=== PATIENT | male | born 1960 | race Caucasian/White ===

== ENCOUNTER 2018-12-06 13:57 | Inpatient (IN) | payer OTHER, SELFPAY ==
[2018-12-06] MEDS ORDERED: ASPIRIN 81 MG CHEWABLE TABLET ONE (15:08)
--- NOTE | 2018-12-06 15:33 | RAD REPORT ---
EXAM DESCRIPTION: RAD - Chest Single View - 12/06/2018 3:03 pm CLINICAL HISTORY: CHEST PAIN Chest pain. COMPARISON: Chest Pa And Lat (2 Views) dated 08/11/2016 FINDINGS: Portable technique limits examination quality. The lungs are grossly clear. The heart is normal in size. No displaced fractures. IMPRESSION: No acute intrathoracic process suspected.
[2018-12-06 15:34] LABS: Absolute Lymphocytes (CBC) 1.3 K/uL (0.7-4.9); Absolute Monocytes 0.9 K/uL (0.1-1.3); Absolute Neutrophil 9.4 K/uL (1.8-8.0); Basophils % 0.9 % (0-1.3); Eosinophils % 2.1 % (0-4.4); Hematocrit 45.5 % (39.6-49.0); Lymphocytes % 11.2 % (15.3-44.8); Monocytes % 7.6 % (3.3-12.3); RBC Red Blood Cell Count 4.81 M/uL (4.33-5.43)
[2018-12-06 15:35] LABS: Protime INR 0.96
[2018-12-06 15:54] LABS: Albumin 4.3 g/dL (3.4-5.0); Bilirubin Direct 0.1 mg/dL (0-0.2); Bilirubin Total 0.4 mg/dL (0.2-1.0); Magnesium 2.1 mg/dL (1.8-2.4); Potassium 4.1 mmol/L (3.5-5.1); Protein, Total 7.8 g/dL (6.4-8.2); Troponin (Emerg Dept Use Only) 0.13 ng/mL (0.0-0.045)
--- NOTE | 2018-12-06 16:14 | ER ---
Nurse's Notes [facility] Name: Gustavo Kong Age: 57 yrs Sex: Male : 1960 Arrival Date: 12/06/2018 Time: 13:58 Bed 7 Private MD: Nir Valverde V Diagnosis: Non-ST elevation (NSTEMI) myocardial infarction Presentation: 12/06 14:06 Presenting complaint: Patient states: Substernal chest pain that radiates to back, ph describes as intermittent pressure, started this morning, denies SOB, N/V. Transition of care: patient was not received from another setting of care. Onset of symptoms was December 06, 2018. Risk Assessment: Do you want to hurt yourself or someone else? Patient reports no desire to harm self or others. Initial Sepsis Screen: Does the patient meet any 2 criteria? No. Patient's initial sepsis screen is negative. Does the patient have a suspected source of infection? No. Patient's initial sepsis screen is negative. Care prior to arrival: None. 14:06 Method Of Arrival: Ambulatory ph 14:06 Acuity: PEDRO LUIS 3 ph Historical: - Allergies: 17:19 No Known Allergies; rv - Home Meds: 17:19 atorvastatin 10 mg oral tab 1 tab once daily [Active]; losartan 50 mg oral tab 1 tab rv once daily [Active]; - PMHx: 14:09 Hypertension; Hyperlipidemia; ph - PSHx: 17:19 None; rv - Immunization history:: Adult Immunizations unknown. - Social history:: Smoking status: unknown. - Ebola Screening: : Patient negative for fever greater than or equal to 101.5 degrees Fahrenheit, and additional compatible Ebola Virus Disease symptoms Patient denies exposure to infectious person Patient denies travel to an Ebola-affected area in the 21 days before illness onset. Screenin:01 Abuse screen: Denies threats or abuse. Denies injuries from another. Nutritional rv screening: No deficits noted. Tuberculosis screening: No symptoms or risk factors identified. Fall Risk None identified. Assessment: 15:00 General: Appears in no apparent distress. comfortable, Behavior is calm, cooperative. rv 15:00 Pain: Complains of pain in chest Pain does not radiate. Pain began suddenly. Neuro: rv Level of Consciousness is awake, alert, obeys commands, Oriented to person, place, time, situation. Cardiovascular: Capillary refill < 3 seconds Rhythm is regular. Respiratory: Airway is patent. GI: No signs and/or symptoms were reported involving the gastrointestinal system. : No signs and/or symptoms were reported regarding the genitourinary system. EENT: No signs and/or symptoms were reported regarding the EENT system. Derm: Skin is intact. Musculoskeletal: No signs and/or symptoms reported regarding the musculoskeletal system. 17:13 Reassessment: Patient appears in no apparent distress at this time. No changes from rv previously documented assessment. Patient and/or family updated on plan of care and expected duration. Pain level reassessed. Patient is alert, oriented x 3, equal unlabored respirations, skin warm/dry/pink. 17:52 Reassessment: chest pain free. rv 20:00 Reassessment: Patient appears in no apparent distress at this time. No changes from rv previously documented assessment. Patient and/or family updated on plan of care and expected duration. Pain level reassessed. Patient is alert, oriented x 3, equal unlabored respirations, skin warm/dry/pink. 12/07 07:00 Reassessment: RECD REPORT FROM COLE JOHNSON. 57YO WM P/W CP. 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 CONSENT AND PREP COMPLETED. 08:02 Reassessment: PT BE WITH HYDRO MECHANIC. bp Vital Signs: 12/06 14:08 BP 162 / 84; Pulse 106; Resp 18; Temp 98.2; Pulse Ox 96% on R/A; Weight 86.18 kg; ph Height 5 ft. 7 in. (170.18 cm); Pain 6/10; 16:00 BP 136 / 87 LA; Pulse 97; Resp 12 S; Pulse Ox 98% on R/A; rv 16:30 BP 155 / 89 LA; Pulse 97; Resp 14 S; Pulse Ox 99% on R/A; rv 17:00 BP 130 / 68 LA; Pulse 90; Resp 18 S; Pulse Ox 100% on R/A; rv 17:30 BP 159 / 88 LA; Pulse 93; Resp 18 S; Pulse Ox 99% on R/A; rv 18:00 BP 137 / 70 LA; Pulse 80; Resp 19 S; Pulse Ox 100% on R/A; rv 18:30 BP 135 / 79 LA; Pulse 91; Resp 19 S; Pulse Ox 100% on R/A; rv 19:00 BP 109 / 52 LA; Pulse 72; Resp 17 S; Pulse Ox 98% on R/A; rv 19:30 BP 124 / 104 LA; Pulse 72; Resp 16 S; Pulse Ox 99% on R/A; rv 20:00 BP 119 / 62 LA; Pulse 68; Resp 12 S; Pulse Ox 99% on R/A; rv 20:30 BP 122 / 88 LA; Pulse 71; Resp 13 S; Pulse Ox 99% on R/A; rv 21:00 BP 136 / 78 LA; Pulse 69; Resp 12 S; Pulse Ox 100% on R/A; rv 12/07 08:00 BP 132 / 76; Pulse 75; Resp 16; Pulse Ox 97% ; bp 12/06 14:08 Body Mass Index 29.76 (86.18 kg, 170.18 cm) ph ED Course: 12/06 13:58 Patient arrived in ED. ag5 13:58 Nir Valverde MD is Private Physician. ag5 14:08 Triage completed. ph 14:10 Arm band placed on. ph 14:21 EKG done, by dietetic tech. reviewed by Bradly Dasilva MD. sm3 14:39 Todd Pierre PA is PHCP. jr8 14:39 Bradly Dasilva MD is Attending Physician. jr8 15:03 XRAY Chest (1 view) In Process Unspecified. EDMS 15:04 X-ray completed. Portable x-ray completed in exam room. Patient tolerated procedure jb2 well. 15:05 Initial lab(s) drawn, by sd, sent to lab. Inserted saline lock: 20 gauge in right lt1 antecubital area, using aseptic technique. 16:13 Nir Valverde MD is Hospitalizing Provider. jr8 17:02 Patient maintains SpO2 saturation greater than 95% on room air. rv 17:03 Patient has correct armband on for positive identification. Bed in low position. Call rv light in reach. Side rails up X 1. Adult w/ patient. nurse monitoring on. Pulse ox on. NIBP on. 23:44 No provider procedures requiring assistance completed. Patient admitted, IV remains in rv place. intact. 12/07 06:59 Kit Tyler, ELIZABETH is Primary Nurse. bp 07:42 EKG done, by dietetic tech. reviewed by Bradly Dasilva MD. at1 Administered Medications: 12/06 15:00 Drug: Aspirin 162 mg Route: PO; rv 18:43 Follow up: Response: No adverse reaction rv 16:30 Drug: Lovenox 1 mg/kg Route: Sub-Q; Site: right lower abdomen; rv 18:43 Follow up: Response: No adverse reaction rv 16:30 Drug: Effient 60 mg Route: PO; rv 18:43 Follow up: Response: No adverse reaction rv 16:30 Drug: Metoprolol 25 mg Route: PO; rv 18:42 Follow up: Response: No adverse reaction rv Outcome: 16:14 Decision to Hospitalize by Provider. jr8 23:45 Admitted to ER Hold. Please see [facility] for further documentation. rv 23:45 Condition: stable 23:45 Instructed on the need for admit. 12/07 08:03 Patient left the ED. bp Signatures: Dispatcher [employer] EDMS Romero Swain jb2 Todd Pierre PA PA jr8 Rebecca Sanford, brake tester EKG Tat1 Magaly Aquino RN RN Kit Tyler RN RN Diana Campo 3 Leighton Ferreira RN RN rv Wolf Tejada ag5 Lisa Spence lt1
--- NOTE | 2018-12-06 16:15 | EDPHYS ---
Physician Documentation [facility] Name: Gustavo Kong Age: 57 yrs Sex: Male : 1960 Arrival Date: 12/06/2018 Time: 13:58 Bed 7 Private MD: Nir Valverde V ED Physician Bradly Dasilva HPI: 12/06 16:07 This 57 yrs old Male presents to ER via Ambulatory with complaints of Chest jr8 Pain. 16:07 The patient or guardian reports chest pain that is located primarily in the substernal jr8 area. Onset: acutely, today. The pain radiates to back. Associated signs and symptoms: The patient has no apparent associated signs or symptoms. The chest pain is described as a heaviness, causing indigestion. Duration: The patient or guardian reports multiple episodes, that are intermittent, that wax and wane, the episodes last approximately 20 minute(s). Modifying factors: The symptoms are alleviated by nothing. the symptoms are aggravated by nothing. Severity of pain: At its worst the pain was moderate in the emergency department the pain has improved mildly. The patient has not experienced similar symptoms in the past. The patient has not recently seen a physician. Historical: - Allergies: 17:19 No Known Allergies; rv - Home Meds: 17:19 atorvastatin 10 mg oral tab 1 tab once daily [Active]; losartan 50 mg oral tab 1 tab rv once daily [Active]; - PMHx: 14:09 Hypertension; Hyperlipidemia; ph - PSHx: 17:19 None; rv - Immunization history:: Adult Immunizations unknown. - Social history:: Smoking status: unknown. - Ebola Screening: : Patient negative for fever greater than or equal to 101.5 degrees Fahrenheit, and additional compatible Ebola Virus Disease symptoms Patient denies exposure to infectious person Patient denies travel to an Ebola-affected area in the 21 days before illness onset. ROS: 16:07 Eyes: Negative for injury, pain, redness, and discharge, ENT: Negative for injury, jr8 pain, and discharge, Neck: Negative for injury, pain, and swelling, Respiratory: Negative for shortness of breath, cough, wheezing, and pleuritic chest pain, Abdomen/GI: Negative for abdominal pain, nausea, vomiting, diarrhea, and constipation, Back: Negative for injury and pain, MS/Extremity: Negative for injury and deformity, Skin: Negative for injury, rash, and discoloration, Neuro: Negative for headache, weakness, numbness, tingling, and seizure. 16:07 Cardiovascular: Positive for chest pain, Negative for edema, orthopnea, palpitations, paroxysmal nocturnal dyspnea. Exam: 16:07 Eyes: Pupils equal round and reactive to light, extra-ocular motions intact. Lids and jr8 lashes normal. Conjunctiva and sclera are non-icteric and not injected. Cornea within normal limits. Periorbital areas with no swelling, redness, or edema. ENT: Nares patent. No nasal discharge, no septal abnormalities noted. Tympanic membranes are normal and external auditory canals are clear. Oropharynx with no redness, swelling, or masses, exudates, or evidence of obstruction, uvula midline. Mucous membranes moist. Neck: Trachea midline, no thyromegaly or masses palpated, and no cervical lymphadenopathy. Supple, full range of motion without nuchal rigidity, or vertebral point tenderness. No Meningismus. Cardiovascular: Regular rate and rhythm with a normal S1 and S2. No gallops, murmurs, or rubs. Normal PMI, no JVD. No pulse deficits. Respiratory: Lungs have equal breath sounds bilaterally, clear to auscultation and percussion. No rales, rhonchi or wheezes noted. No increased work of breathing, no retractions or nasal flaring. Abdomen/GI: Soft, non-tender, with normal bowel sounds. No distension or tympany. No guarding or rebound. No evidence of tenderness throughout. Back: No spinal tenderness. No costovertebral tenderness. Full range of motion. Skin: Warm, dry with normal turgor. Normal color with no rashes, no lesions, and no evidence of cellulitis. MS/ Extremity: Pulses equal, no cyanosis. Neurovascular intact. Full, normal range of motion. Neuro: Awake and alert, GCS 15, oriented to person, place, time, and situation. Cranial nerves II-XII grossly intact. Motor strength 5/5 in all extremities. Sensory grossly intact. Cerebellar exam normal. Normal gait. Vital Signs: 14:08 BP 162 / 84; Pulse 106; Resp 18; Temp 98.2; Pulse Ox 96% on R/A; Weight 86.18 kg; ph Height 5 ft. 7 in. (170.18 cm); Pain 6/10; 16:00 BP 136 / 87 LA; Pulse 97; Resp 12 S; Pulse Ox 98% on R/A; rv 16:30 BP 155 / 89 LA; Pulse 97; Resp 14 S; Pulse Ox 99% on R/A; rv 17:00 BP 130 / 68 LA; Pulse 90; Resp 18 S; Pulse Ox 100% on R/A; rv 17:30 BP 159 / 88 LA; Pulse 93; Resp 18 S; Pulse Ox 99% on R/A; rv 18:00 BP 137 / 70 LA; Pulse 80; Resp 19 S; Pulse Ox 100% on R/A; rv 18:30 BP 135 / 79 LA; Pulse 91; Resp 19 S; Pulse Ox 100% on R/A; rv 19:00 BP 109 / 52 LA; Pulse 72; Resp 17 S; Pulse Ox 98% on R/A; rv 19:30 BP 124 / 104 LA; Pulse 72; Resp 16 S; Pulse Ox 99% on R/A; rv 20:00 BP 119 / 62 LA; Pulse 68; Resp 12 S; Pulse Ox 99% on R/A; rv 20:30 BP 122 / 88 LA; Pulse 71; Resp 13 S; Pulse Ox 99% on R/A; rv 21:00 BP 136 / 78 LA; Pulse 69; Resp 12 S; Pulse Ox 100% on R/A; rv 12/07 08:00 BP 132 / 76; Pulse 75; Resp 16; Pulse Ox 97% ; bp 12/06 14:08 Body Mass Index 29.76 (86.18 kg, 170.18 cm) ph MDM: 12/06 14:49 Patient medically screened. oswaldo 16:12 The patient was given aspirin in the Emergency Department. Data reviewed: vital signs, jr8 nurses notes, lab test result(s), EKG, radiologic studies, plain films. Data interpreted: Pulse oximetry: on room air is 96 %. Interpretation: normal. Counseling: I had a detailed discussion with the patient and/or guardian regarding: the historical points, exam findings, and any diagnostic results supporting the discharge/admit diagnosis, lab results, radiology results, the need for further work-up and treatment in the hospital. Physician consultation: Nir Valverde MD was called at 16:13, was contacted at 16:13, regarding admission, to the ICU, consult, patient's condition, and will see patient. ED course: Dr. Nick consulted and will see patient as well . 12/06 14:30 Order name: Basic Metabolic Panel; Complete Time: 15:57 hb 12/06 14:30 Order name: CBC with Diff; Complete Time: 15:57 hb 12/06 14:30 Order name: LFT's; Complete Time: 15:57 hb 12/06 14:30 Order name: Magnesium; Complete Time: 15:57 hb 12/06 14:30 Order name: NT PRO-BNP; Complete Time: 15:57 hb 12/06 14:30 Order name: PT-INR; Complete Time: 15:57 hb 12/06 14:30 Order name: Troponin (emerg Dept Use Only); Complete Time: 15:57 hb 12/06 15:56 Order name: Urine Dipstick--Ancillary (enter results); Complete Time: 17:02 bd 12/06 23:34 Order name: Troponin I EDMT 12/07 03:05 Order name: Troponin I EDMT 12/07 03:51 Order name: ABO/RH no charge EDMT 12/07 03:52 Order name: Type and Screen EDMT 12/07 06:01 Order name: Basic Metabolic Panel EDMS 12/07 06:13 Order name: CBC with Automated Diff EDMS 12/06 14:30 Order name: XRAY Chest (1 view); Complete Time: 15:57 hb 12/06 14:30 Order name: EKG; Complete Time: 14:31 hb 12/06 14:30 Order name: Cardiac monitoring; Complete Time: 15:07 hb 12/06 14:30 Order name: EKG - Nurse/Tech; Complete Time: 14:30 hb 12/06 14:30 Order name: IV Saline Lock; Complete Time: 15:06 hb 12/06 14:30 Order name: Labs collected and sent; Complete Time: 15:07 hb 12/06 14:30 Order name: O2 Per Protocol; Complete Time: 15:07 hb 12/06 14:30 Order name: O2 Sat Monitoring; Complete Time: 15:07 hb 12/06 17:22 Order name: CL CARDIAC CATH - REQUEST EDMT 12/06 17:22 Order name: NPO EDMT 12/06 18:41 Order name: CONS Physician Consult EDMT Administered Medications: 15:00 Drug: Aspirin 162 mg Route: PO; rv 18:43 Follow up: Response: No adverse reaction rv 16:30 Drug: Lovenox 1 mg/kg Route: Sub-Q; Site: right lower abdomen; rv 18:43 Follow up: Response: No adverse reaction rv 16:30 Drug: Effient 60 mg Route: PO; rv 18:43 Follow up: Response: No adverse reaction rv 16:30 Drug: Metoprolol 25 mg Route: PO; rv 18:42 Follow up: Response: No adverse reaction rv Disposition: 12/07 09:18 Co-signature as Attending Physician, Bradly Dasilva MD I agree with the assessment and oswaldo plan of care. Disposition: 12/06/18 16:14 Hospitalization ordered by Nir Valverde for Inpatient Admission. Preliminary diagnosis is Non-ST elevation (NSTEMI) myocardial infarction. - Bed requested for [facility] ER HOLD. - Status is Inpatient Admission. bp - Condition is Stable. - Problem is new. - Symptoms have improved. UTI on Admission? No Signatures: Dispatcher [employer] EDMS Noemi Manzano RN Bradly Pedro MD MD cha Roszak, Josh, PA PA jr8 Magaly Aquino RN ELIZABETH Floresita Jaimes, RN RN Kit Polanco, RN RN Leighton Porter, RN RN rv Corrections: (The following items were deleted from the chart) 12/06 19:50 16:14 Hospitalization Ordered by Nir Valverde MD for Inpatient Admission. Preliminary dw diagnosis is Non-ST elevation (NSTEMI) myocardial infarction. Bed requested for Intensive Care Unit. Status is Inpatient Admission. Condition is Stable. Problem is new. Symptoms have improved. UTI on Admission? No. jr8 12/07 08:03 12/06 19:50 12/06/2018 16:14 Hospitalization Ordered by Nir Valverde MD for Inpatient bp Admission. Preliminary diagnosis is Non-ST elevation (NSTEMI) myocardial infarction. Bed requested for [facility] ER HOLD. Status is Inpatient Admission. Condition is Stable. Problem is new. Symptoms have improved. UTI on Admission? No. dw
[2018-12-06] MEDS ORDERED: ENOXAPARIN 100 MG/ML SYR SQ ONE (16:31)
[2018-12-06] MEDS ORDERED: METOPROLOL TAR 25 MG TAB ONE (16:31)
[2018-12-06] MEDS ORDERED: PRASUGREL (EFFIENT) 10 MG TAB ONE (16:33)
[2018-12-06 16:58] LABS: Urine Blood TRACE (NEG); Urine Glucose NEGATIVE (NEG); Urine Protein NEGATIVE (NEG); Urine Specific Gravity 1.015 (1.005-1.030)
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
[2018-12-06] MEDS ORDERED: ONDANSETRON 4 MG/2 ML VIAL IV PRN (22:18)
[2018-12-06] MEDS ORDERED: MORPHINE 4 MG/ML SYR IV PRN (22:18)
[2018-12-06] MEDS ORDERED: ACETAMINOPHEN 500 MG TAB PO PRN (22:18)
[2018-12-06 23:16] VITALS: BMI 29.7
--- NOTE | 2018-12-07 05:29 | EKG ---
Test Date: 2018-12-06 Test Time: 14:13:43 Umbrella Repairer: ERICKA MEASUREMENT RESULTS: Intervals: Rate: 96 MD: 150 QRSD: 96 QT: 340 QTc: 429 Kimball: P: 77 MD: 150 QRS: -4 T: 63 INTERPRETIVE STATEMENTS: Normal sinus rhythm Normal ECG No previous ECG available for comparison Electronically Signed On 12-07-18 05:28:24 CDT by Cristo Nick
[2018-12-07 05:52] LABS: Potassium 4.6 mmol/L (3.5-5.1)
[2018-12-07] MEDS: METOPROLOL XL 25 MG TAB PO SCH (06:00)
[2018-12-07 06:07] LABS: Absolute Lymphocytes (CBC) 2.3 K/uL (0.7-4.9); Absolute Monocytes 1.2 K/uL (0.1-1.3); Absolute Neutrophil 5.2 K/uL (1.8-8.0); Basophils % 0.9 % (0-1.3); Eosinophils % 5.4 % (0-4.4); Hematocrit 46.1 % (39.6-49.0); Lymphocytes % 25.4 % (15.3-44.8); Monocytes % 12.6 % (3.3-12.3); RBC Red Blood Cell Count 4.86 M/uL (4.33-5.43)
[2018-12-07] MEDS ORDERED: METOPROLOL TAR 25 MG TAB ONE (06:22)
[2018-12-07] MEDS ORDERED: HEPARIN 5000 UNIT/ML 1 ML VIAL ONE (07:18)
[2018-12-07] MEDS ORDERED: HEPA 1000U/500MLS 2,000 UNIT/1,000 ML BAG IV ONE (07:18)
[2018-12-07] MEDS ORDERED: NICARDIPINE HCL 25 MG/10 ML IV ONE (07:18)
[2018-12-07] MEDS ORDERED: NITROGLYCERIN/D5W 25 MG/250 ML BTL IV ONE (07:19)
[2018-12-07] MEDS ORDERED: ATROPINE SULF 1 MG/10 ML SYR IV ONE (07:19)
[2018-12-07] MEDS ORDERED: LIDOCAINE 1% MPF 30 ML VIAL ONE (07:19)
[2018-12-07] MEDS ORDERED: NITROGLYCERIN 100 MCG/ML SYR (for cath lab use only) IV ONE (07:19)
[2018-12-07] MEDS ORDERED: NA CHLORIDE 0.9% 0 ML ONE (07:19)
[2018-12-07] MEDS ORDERED: NA CHLORIDE 0.9% 500 ML ONE (08:06)
[2018-12-07] MEDS ORDERED: MIDAZOLAM HCL 2 MG/2 ML INJ ONE ×3 (08:10→08:30)
[2018-12-07] MEDS ORDERED: FENTANYL CITR 100 MCG/2 ML ONE ×2 (08:10→08:31)
[2018-12-07] MEDS: ASPIRIN EC 81 MG TAB PO SCH (09:00)
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
--- NOTE | 2018-12-07 12:38 | OP ---
Surgeon: Cristo Nick MD Procedures: Left heart catheterization, coronary left ventricular angiography. Procedure Findings: The patient has a normal left ventricular ejection fraction, mildly hypotensive because of nicardipine during the case. Blood pressure normal after the case. His left ventricular end-diastolic pressure was 14, which is borderline. No segmental wall motion abnormality. 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 The circumflex is large. There is a ramus that is free of any disease. His left main is free of any disease. His LAD is occluded in midportion. The distal part of the LA D fills by collaterals. LENNY grade 1 collateral flow. The collateral flow to the distal right is th rough bridging collaterals. Both occlusions look like they are very old and not a fresh occlusion as would be seen in an ST-elevation [place]. No attempt was made to dilate either lesion and it is recommen ded that the patient undergo bypass surgery. Procedure In Detail: The patient was brought to the cardiac cook house laborer in a fasting state, sedated wit h Versed and fentanyl. Prepared and draped in usual sterile fashion. Right radial approach was used . Lidocaine 1% was given to the tissues around the right radial artery. The artery was entered usin g a 21-gauge needle, cannulated with a 0.021 inch diameter guidewire. 6-Telugu Terumo radial sheath was inserted over the guidewire and the sheath was flushed and a radial cocktail was given. This con sisted of nicardipine, heparin, and nitroglycerin. We were able to advance a TIG catheter into the a scending aorta using fluoroscopy and a short radius J-tip Glidewire. We were able to angiogram right coronary, left coronary, left ventricle, all with the same catheter. At the end of procedure when n o intervention was decided upon, we removed the catheter and the wire. The sheath was removed. The arteriotomy closed using a TR band. Estimated Blood Loss: 5 cc. Complications: None. Nursing Coordinator: Colten Adam. VIKY/JOVAN Voice ID: [id number] Report ID: [id number]
[2018-12-07] MEDS: ATORVASTATIN 80 MG TAB PO SCH (20:41)
[2018-12-07] MEDS: NICOTINE 7 MG/PAT TD SCH (20:41)
[2018-12-08] MEDS: METOPROLOL XL 25 MG TAB PO SCH (05:18)
[2018-12-08] MEDS ORDERED: ENOXAPARIN 40 MG/0.4 ML SQ SCH (09:00)
[2018-12-08] MEDS ORDERED: NICOTINE 7 MG/PAT TD SCH (09:00)
[2018-12-08] MEDS ORDERED: ATORVASTATIN 10 MG TAB PO SCH (09:00)
[2018-12-08] MEDS: ASPIRIN EC 81 MG TAB PO SCH (09:04)
[2018-12-08 10:19] VITALS: O2SAT 95
--- NOTE | 2018-12-08 17:23 | P.PN ---
Subjective Date of Service: 12/08/18 Chief Complaint: HEARTBURN AND BACK PAIN IN [employer]. DR PENA CALLED. HE HAS TOTAL LAD OCCLUSION. NEEDS CABG. HE WILL HAVE TO WAIT UNTIL MONDAY HE RECEIVED FULL DOSE OF EFFIENT PER DR. PENA. HE IS STABLE. HE HAS NO PAIN ANY LONGER. WITH THE PATCH HE HAS NOT CRAVED CIGARETTES NOW. Physical Examination - Vital Signs Temperature: 98.2 F Blood Pressure: 142/73 Pulse: 68 Respirations: 18 Pulse Ox (%): 96 Assessment And Plan - Current Problems (Diagnosis) (1) Chest pain Current Visit: Yes Status: Acute (2) Atypical chest pain Current Visit: Yes Status: Acute Plan: GERD WITH BACK PAIN IN HIGH RISK CORONARY PATIENT. TROPONIIN IS MILD HIGH. CATH IN AM STENT POSSIBLE. MAY HAVE RCA DISEASE.
[2018-12-08] MEDS: ATORVASTATIN 80 MG TAB PO SCH (20:29)
[2018-12-08] MEDS: NICOTINE 7 MG/PAT TD SCH (20:29)
--- NOTE | 2018-12-08 23:23 | PN ---
Date of Progress Note: 12/08/2018 Subjective: Mr. Kong was admitted to Dr. Valverde's service for non-ST elevation myocardial infarctio n. He is 58-year-old. No previous cardiac history. Catheterization showed occlusion of his LAD and RCA. There is a plan for [facility] coronary artery byp ass surgery. He is awaiting transfer. His surgery was delayed because he has received Effient, this is being held. No cardiac symptoms. Today sinus rhythm. Wrist insertion site on the right radial artery appears to be intact without any hematoma. He has good distal pulses. LAUREN/JOVAN Voice ID: [id number] Report ID: [id number]
[2018-12-09] MEDS: METOPROLOL XL 25 MG TAB PO SCH (05:14)
[2018-12-09 08:19] VITALS: BP 136/70; TEMP 97
[2018-12-09] MEDS: ASPIRIN EC 81 MG TAB PO SCH (08:38)
--- NOTE | 2018-12-10 17:39 | P.DS ---
Admission Date: 12/06/18 Discharge Date: 12/10/18 Disposition: TRANSFER TO [facility] Discharge Condition: GOOD Reason for Admission: HEARTBURN AND BACK PAIN - Problems (1) Chest pain Status: Acute (2) Atypical chest pain Status: Acute Brief History of Present Illness: MR. ZAYAS IS A SMOKER WHO SMOKES 1.5 PACKS A DAY WITH STRONG FAMILY HISTORY OF CAD COMES WITH GERD RADIATING TO BACK. HE HAD NO CHEST PAIN, DIAPHORESIS OR WEAKNESS. HIS TROPONIN IS MILD HIGH. MR. 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 HE IS STABLE AND SENT TO [facility] FOR CABG. Vital Signs/Physical Exam: Temp Pulse Resp BP Pulse Ox 97 F 64 18 136/70 96 12/09/18 08:00 12/09/18 08:00 12/09/18 08:00 12/09/18 08:00 12/09/18 08:00 Laboratory Data at Discharge: WBC 9.2 K/uL (4.3-10.9) D 12/07/18 05:30 Hgb 15.5 g/dL (13.6-17.9) 12/07/18 05:30 Hct 46.1 % (39.6-49.0) 12/07/18 05:30 Plt Count 278 K/uL (152-406) 12/07/18 05:30 PT 11.4 SECONDS (9.5-12.5) 12/06/18 14:59 INR 0.96 12/06/18 14:59 Sodium 139 mmol/L (136-145) 12/07/18 05:30 Potassium 4.6 mmol/L (3.5-5.1) 12/07/18 05:30 BUN 16 mg/dL (7-18) 12/07/18 05:30 Creatinine 1.05 mg/dL (0.55-1.3) 12/07/18 05:30 Glucose 92 mg/dL (74-106) 12/07/18 05:30 Magnesium 2.1 mg/dL (1.8-2.4) 12/06/18 14:59 Total Bilirubin 0.4 mg/dL (0.2-1.0) 12/06/18 14:59 AST 13 U/L (15-37) L 12/06/18 14:59 ALT 21 U/L (12-78) 12/06/18 14:59 Alkaline Phosphatase 64 U/L (45-117) 12/06/18 14:59 Troponin I 1.45 ng/mL (0.0-0.045) H* 12/07/18 02:27 Home Medications: Atorvastatin Calcium [Lipitor*] 10 mg PO DAILY 12/07/18 Losartan Potassium 50 mg PO DAILY 12/07/18
== END 2018-12-09 10:15 | disposition short-term general hospital (02) | DRG 282 ==
LOC: ER 13:57 → ERHOLD 18:39 → 4TH 12-07 12:44
PROVIDERS: ADMIT Internal Medicine; ATTEND Internal Medicine
PROC: 4A023N7 Measurement of Cardiac Sampling and Pressure, Left Heart, Percutaneous Approach (ICD-10-PCS; principal; 2018-12-07)
PROC: B211YZZ Fluoroscopy of Multiple Coronary Arteries using Other Contrast (ICD-10-PCS; 2018-12-07)
PROC: B215YZZ Fluoroscopy of Left Heart using Other Contrast (ICD-10-PCS; 2018-12-07)
DX: I21.3 ST elevation (STEMI) myocardial infarction of unspecified site (principal); I25.110 Atherosclerotic heart disease of native coronary artery with unstable angina pectoris; F17.210 Nicotine dependence, cigarettes, uncomplicated; K21.9 Gastro-esophageal reflux disease without esophagitis; I10 Essential (primary) hypertension; I95.2 Hypotension due to drugs; T46.1X5A Adverse effect of calcium-channel blockers, initial encounter; Y92.234 Operating room of hospital as the place of occurrence of the external cause; I25.82 Chronic total occlusion of coronary artery; E78.5 Hyperlipidemia, unspecified; Z82.49 Family history of ischemic heart disease and other diseases of the circulatory system
CPT/HCPCS: 36415; 71045; 80048; 80076; 81003; 83735; 83880; 84484; 85025; 85610; 86850; 86900; 86901; 93005; 93458; 96372; 99285; C1893; J0583; J1644; J1650; J2250; J3010